=== PATIENT | female | born 1940 | race African-American/Black ===

== ENCOUNTER 2020-02-13 04:38 | Inpatient (IN) | payer OTHER ==
[~2020-02-13] VITALS: Ht 157.5 cm; Wt 101.7 kg
[2020-02-13 06:46] LABS: BASOPHILS % 0.7 % (0.0-2.0); EOSINOPHILS % 0.7 % (0.0-5.0); HEMATOCRIT. 32.6 % (36.0-48.0); HEMOGLOBIN. 10.6 g/dL (12.0-16.0); LYMPHOCYTES % 11.1 % (20.0-50.0); MEAN CORPUSCULAR HEMOGLOBIN 27.4 pg (28.0-32.0); MEAN CORPUSCULAR VOLUME 84.2 fL (81.0-99.0); MEAN PLATELET VOLUME 9.3 fl (7.4-10.4); MONOCYTES % 6.2 % (2.0-8.0); NEUTROPHILS % 81.3 % (40.0-76.0); PLATELET 208 x1000/uL (130-400); RED BLOOD CELL COUNT 3.88 mill/uL (4.2-5.4)
[2020-02-13 06:52] LABS: CHLORIDE 113 mEq/L (98-107)
[2020-02-13 06:55] LABS: PROTHROMBIN TIME 10.7 sec (9.6-11.0)
[2020-02-13] MEDS ORDERED: NITROGLYCERIN 0.4MG TABLET SL SL ONE ×2 (07:15→11:00)
[2020-02-13] MEDS ORDERED: FUROSEMIDE 40MG/4ML VIAL IVP ONE (07:15)
[2020-02-13] MEDS ORDERED: ASPIRIN 81MG TABLET PO ONE (07:15)
[2020-02-13] MEDS ORDERED: NITROGLYCERIN 50MG PREMIX 250 ML IV ONE (08:00)
[2020-02-13] MEDS ORDERED: DIPHENHYDRAMINE 50MG/ML VIAL IV PRN (11:00)
[2020-02-13] MEDS ORDERED: DOCUSATE SODIUM 100MG CAPSULE PO PRN (11:00)
[2020-02-13] MEDS ORDERED: ISOSORBIDE MONONITRATE 30MG TABLET SR 24HR PO SCH (11:00)
[2020-02-13] MEDS ORDERED: ONDANSETRON HCL 4MG/2ML INJ IV PRN (11:00)
[2020-02-13] MEDS ORDERED: ACETAMINOPHEN 325MG TABLET PO PRN ×2 (11:00)
[2020-02-13] MEDS ORDERED: ACETAMINOPHEN 650MG/20.3ML UDC GT PRN ×2 (11:00)
[2020-02-13] MEDS ORDERED: NA PHOS,M-B/NA PHOS,DI-BA ENEMA 118ML PR PRN (11:00)
[2020-02-13] MEDS ORDERED: GUAIFENESIN 200MG/10ML SUGAR FREE UDC PO PRN (11:00)
[2020-02-13 13:14] LABS: BG BASE EXCESS -2.7 mmol/L (-2.0-2.0); BG CARBOXYHEMOGLOBIN 0.3 % (0.5-1.5); BG DEOXYHEMOGLOBIN 6.1 % (0.0-5.0); BG FRACTION INSPIRED OXYGEN 28; BG HCO3 ACT 22.8 mmol/L (22.0-26.0); BG METHEMOGLOBIN 0.3 % (0.0-1.5); BG OXYGEN SATURATION 93.9 % (92.0-98.5); BG OXYHEMOGLOBIN 93.3 % (94.0-97.0); BG PCO2 42.6 mmHg (35.0-45.0); BG PH 7.346 (7.350-7.450); BG PO2 69.3 mmHg (75.0-100.0); BG SAMPLE SITE RIGHT RADIAL; BG VENT MODE NASAL CANNULA
[2020-02-13] MEDS: CLONIDINE 0.1MG TABLET PO PRN (13:56)
[2020-02-13] MEDS: FUROSEMIDE 40MG/4ML VIAL IV SCH (15:08)
[2020-02-13] MEDS ORDERED: OMEP20TA2 MT (18:00)
[2020-02-13] MEDS ORDERED: SPIR100T5 MT (18:06)
[2020-02-13] MEDS ORDERED: AMLO10TA80 PO (18:09)
[2020-02-13] MEDS ORDERED: ATOR-2 PO (18:09)
[2020-02-13] MEDS: AMLODIPINE 10MG TABLET PO SCH (21:17)
[2020-02-13 22:20] VITALS: BP 211/88
[2020-02-13] MEDS ORDERED: IPRATROPIUM/ALBUTEROL 0.5-3(2.5)MG/3ML NEB HHN PRN (22:30)
[2020-02-13] MEDS: HYDRALAZINE HCL 50MG TABLET PO SCH (22:52)
[2020-02-13] MEDS: METHYLPREDNISOLONE SOD SUCC 40 MG/ML VIAL IV SCH (23:07)
[2020-02-14] VITALS (7 sets, daily range): BP systolic 161–190; BP diastolic 69–89
[2020-02-14] MEDS: CLONIDINE 0.1MG TABLET PO PRN ×3 (01:06→13:32)
[2020-02-14] MEDS: METHYLPREDNISOLONE SOD SUCC 40 MG/ML VIAL IV SCH ×3 (05:35→21:18)
[2020-02-14] MEDS: HYDRALAZINE HCL 50MG TABLET PO SCH ×3 (05:38→21:20)
[2020-02-14 08:04] LABS: BASOPHILS % 0.3 % (0.0-2.0); EOSINOPHILS % 0.1 % (0.0-5.0); HEMATOCRIT. 30.8 % (36.0-48.0); HEMOGLOBIN. 10.2 g/dL (12.0-16.0); LYMPHOCYTES % 11.3 % (20.0-50.0); MEAN CORPUSCULAR HEMOGLOBIN 27.7 pg (28.0-32.0); MEAN CORPUSCULAR VOLUME 83.4 fL (81.0-99.0); MEAN PLATELET VOLUME 9.5 fl (7.4-10.4); MONOCYTES % 1.1 % (2.0-8.0); NEUTROPHILS % 87.2 % (40.0-76.0); PLATELET 210 x1000/uL (130-400); RED BLOOD CELL COUNT 3.69 mill/uL (4.2-5.4); RED CELL DISTRIBUTION WIDTH 14.8 % (11.6-14.6)
[2020-02-14 08:16] LABS: CHLORIDE 109 mEq/L (98-107)
[2020-02-14 08:23] LABS: LDL CHOLESTEROL 99 mg/dL (5-100)
[2020-02-14 08:24] LABS: HDL CHOLESTEROL 48 mg/dL (40-59)
[2020-02-14] MEDS: AMLODIPINE 10MG TABLET PO SCH (08:38)
[2020-02-14] MEDS ORDERED: AZITHROMYCIN 500 MG TABLET PO ONE (09:00)
[2020-02-14] MEDS: FUROSEMIDE 40MG/4ML VIAL IV SCH (10:10)
[2020-02-14] MEDS: ISOSORBIDE DINITRATE 10MG TABLET PO SCH ×2 (13:33→17:32)
[2020-02-15] VITALS (8 sets, daily range): BP systolic 121–175; BP diastolic 57–70
[2020-02-15] MEDS: CLONIDINE 0.1MG TABLET PO PRN ×3 (00:58→17:20)
[2020-02-15 02:07] LABS: CLARITY URINE CLEAR (CLEAR); COLOR URINE YELLOW (YELLOW); KETONES URINE NEGATIVE (NEGATIVE); LEUKOCYTE ESTERASE URINE NEGATIVE (NEGATIVE); NITRITE URINE NEGATIVE (NEGATIVE); OCCULT BLOOD URINE NEGATIVE (NEGATIVE); PROTEIN URINE 2+ (NEGATIVE); SPECIFIC GRAVITY URINE 1.012 (1.005-1.030); UROBILINOGEN URINE 0.2 E.U./dL (0.2-1.0)
[2020-02-15 02:16] LABS: METHADONE URINE SCREEN NEGATIVE (NEGATIVE)
[2020-02-15 02:17] LABS: *AMPHETAMINES SCREEN URINE NEGATIVE (NEGATIVE); *BENZODIAZEPINES SCREEN URINE NEGATIVE (NEGATIVE); *COCAINE SCREEN URINE NEGATIVE (NEGATIVE); CANNABINOID URINE SCREEN NEGATIVE (NEGATIVE); OPIATES URINE SCREEN NEGATIVE (NEGATIVE); PHENCYCLIDINE URINE SCREEN NEGATIVE (NEGATIVE)
[2020-02-15 02:20] LABS: *BARBITURATES SCREEN URINE NEGATIVE (NEGATIVE)
[2020-02-15] MEDS ORDERED: OMEPRAZOLE 20MG CAPSULE EXTENDED RELEASE PO SCH (06:45)
[2020-02-15] MEDS ORDERED: NON FORMULARY PATIENT HOME MED XX SCH (06:45)
[2020-02-15] MEDS ORDERED: OMEPRAZOLE 20MG CAP PO SCH (06:45)
[2020-02-15] MEDS: METHYLPREDNISOLONE SOD SUCC 40 MG/ML VIAL IV SCH ×2 (06:49→13:38)
[2020-02-15] MEDS: HYDRALAZINE HCL 50MG TABLET PO SCH (06:50)
[2020-02-15] MEDS: FUROSEMIDE 40MG/4ML VIAL IV SCH (09:00)
[2020-02-15] MEDS: ISOSORBIDE DINITRATE 10MG TABLET PO SCH ×3 (09:00→17:20)
[2020-02-15] MEDS: AMLODIPINE 10MG TABLET PO SCH (09:00)
[2020-02-15] MEDS ORDERED: AZITHROMYCIN 250 MG TABLET PO SCH (09:00)
[2020-02-15] MEDS ORDERED: DEXTROSE 50% WATER 50ML SYRINGE IV PRN (11:30)
[2020-02-15] MEDS: BLOOD SUGAR DIAGNOSTIC STRIP TEST SCH ×3 (12:11→20:53)
[2020-02-15] MEDS: INSULIN LISPRO 100 UNITS/ML SUBCUT SCH ×3 (12:12→20:53)
[2020-02-15 13:01] LABS: BASOPHILS % 0.1 % (0.0-2.0); HEMATOCRIT. 31.1 % (36.0-48.0); HEMOGLOBIN. 10.4 g/dL (12.0-16.0); MEAN CORPUSCULAR VOLUME 83.5 fL (81.0-99.0); MEAN PLATELET VOLUME 9.1 fl (7.4-10.4); MONOCYTES % 4.6 % (2.0-8.0); NEUTROPHILS % 85.3 % (40.0-76.0); PLATELET 260 x1000/uL (130-400); RED BLOOD CELL COUNT 3.73 mill/uL (4.2-5.4); RED CELL DISTRIBUTION WIDTH 15.4 % (11.6-14.6)
[2020-02-15 13:04] LABS: CHLORIDE 106 mEq/L (98-107)
[2020-02-15] MEDS: HYDRALAZINE HCL 25MG TABLET PO SCH ×2 (13:42→22:27)
[2020-02-15] MEDS: IPRATROPIUM/ALBUTEROL 0.5-3(2.5)MG/3ML NEB HHN SCH ×2 (14:27→21:15)
== END 2020-02-15 22:40 | disposition short-term general hospital (02) | DRG 304 ==
LOC: ER 05:04 → 7EST 09:44 → EDBEDREQSVC 19:01 → ENRESERV 20:54 → 5WST 02-14 23:58
PROVIDERS: ADMIT Family Medicine; ATTEND Family Medicine
PROC: 5A09357 Assistance with Respiratory Ventilation, Less than 24 Consecutive Hours, Continuous Positive Airway Pressure (ICD-10-PCS; principal; 2020-02-13)
DX: I16.1 Hypertensive emergency (principal); J96.01 Acute respiratory failure with hypoxia; I31.3 Pericardial effusion (noninflammatory); N17.9 Acute kidney failure, unspecified; Z68.41 Body mass index [BMI] 40.0-44.9, adult; J44.1 Chronic obstructive pulmonary disease with (acute) exacerbation; I13.0 Hypertensive heart and chronic kidney disease with heart failure and stage 1 through stage 4 chronic kidney disease, or unspecified chronic kidney disease; D63.8 Anemia in other chronic diseases classified elsewhere; N18.9 Chronic kidney disease, unspecified; R77.8 Other specified abnormalities of plasma proteins; D72.829 Elevated white blood cell count, unspecified; E66.01 Morbid (severe) obesity due to excess calories; E11.22 Type 2 diabetes mellitus with diabetic chronic kidney disease; F17.210 Nicotine dependence, cigarettes, uncomplicated; I25.10 Atherosclerotic heart disease of native coronary artery without angina pectoris; I49.3 Ventricular premature depolarization; I50.9 Heart failure, unspecified; Z20.828 Contact with and (suspected) exposure to other viral communicable diseases; Z79.899 Other long term (current) drug therapy
CPT/HCPCS: 36415; 36600; 71045; 71250; 76770; 80053; 80061; 80305; 81003; 82375; 82805; 82962; 83036; 83605; 83880; 84484; 85025; 87426; 87635; 93005; 93306; 93970; 94640; 94660; 99285; J1940; J2920; J3490

== ENCOUNTER 2020-03-15 08:03 | Inpatient (IN) | payer OTHER ==
[~2020-03-15] VITALS: Ht 157.5 cm; Wt 95.7 kg
[~2020-03-15 08:03] MED LIST: AMLO10TA80 PO; ATOR-2 PO; OMEP20TA2 MT; SPIR100T5 MT
[2020-03-15] MEDS ORDERED: FUROSEMIDE 40MG/4ML VIAL IVP ONE (08:45)
[2020-03-15] MEDS ORDERED: NITROGLYCERIN 0.4MG TABLET SL SL ONE (08:45)
[2020-03-15 08:55] LABS: BASOPHILS % 1.1 % (0.0-2.0); EOSINOPHILS % 4.1 % (0.0-5.0); HEMATOCRIT. 29.1 % (36.0-48.0); HEMOGLOBIN. 9.5 g/dL (12.0-16.0); LYMPHOCYTES % 22.3 % (20.0-50.0); MEAN CORPUSCULAR VOLUME 83.2 fL (81.0-99.0); MEAN PLATELET VOLUME 8.5 fl (7.4-10.4); MONOCYTES % 8.4 % (2.0-8.0); NEUTROPHILS % 64.1 % (40.0-76.0); PLATELET 447 x1000/uL (130-400); RED CELL DISTRIBUTION WIDTH 15.9 % (11.6-14.6)
[2020-03-15 09:02] LABS: CHLORIDE 107 mEq/L (98-107)
[2020-03-15] MEDS ORDERED: CEFTRIAXONE 1 G PREMIX 50 ML IV ONE (11:30)
[2020-03-15] MEDS ORDERED: ASPIRIN 81MG TABLET PO ONE (11:30)
[2020-03-15] MEDS: AZITHROMYCIN 500 MG in DEXT 5% WATER 250 ML IV SCH ×2 (12:00→12:40)
[2020-03-15 14:07] VITALS: BP 165/78
[2020-03-15 16:00] VITALS: BP 173/69
[2020-03-15] MEDS ORDERED: IPRATROPIUM/ALBUTEROL 0.5-3(2.5)MG/3ML NEB HHN SCH (16:00)
[2020-03-15] MEDS ORDERED: MAGNESIUM/ALUMINUM HYDROXIDE/SIMETHICONE 30ML UDC PO PRN (17:00)
[2020-03-15] MEDS ORDERED: ONDANSETRON HCL 4MG/2ML INJ IV PRN (17:00)
[2020-03-15] MEDS ORDERED: ACETAMINOPHEN 325MG TABLET PO PRN ×2 (17:00)
[2020-03-15] MEDS ORDERED: MAGNESIUM HYDROXIDE 400MG/5ML 30ML UDC PO PRN (17:00)
[2020-03-15] MEDS ORDERED: DEXTROSE 50% WATER 50ML SYRINGE IV PRN (17:00)
[2020-03-15] MEDS ORDERED: GUAIFENESIN 200MG/10ML SUGAR FREE UDC PO PRN (17:00)
[2020-03-15] MEDS ORDERED: IPRATROPIUM/ALBUTEROL 0.5-3(2.5)MG/3ML NEB HHN PRN (17:00)
[2020-03-15] MEDS ORDERED: HYDROCODONE/ACETAMINOPHEN 5/325MG TABLET PO PRN (17:00)
[2020-03-15] MEDS ORDERED: DIPHENHYDRAMINE 50MG/ML VIAL IV PRN (17:00)
[2020-03-15] MEDS: IPRATROPIUM/ALBUTEROL 0.5-3(2.5)MG/3ML NEB HHN SCH (17:34)
[2020-03-15] MEDS: BLOOD SUGAR DIAGNOSTIC STRIP TEST SCH ×2 (17:43→21:04)
[2020-03-15] MEDS: INSULIN LISPRO 100 UNITS/ML SUBCUT SCH ×2 (17:44→21:00)
[2020-03-15] MEDS: FUROSEMIDE 40MG/4ML VIAL IVP SCH (17:49)
[2020-03-15] MEDS: ENOXAPARIN 40MG/0.4ML SYR SUBCUT SCH (17:49)
[2020-03-15 20:28] VITALS: BP 155/68
[2020-03-15] MEDS ORDERED: ZOLPIDEM TARTRATE 5MG TABLET PO PRN (21:00)
[2020-03-15] MEDS: HYDRALAZINE HCL 50MG TABLET PO SCH (21:03)
[2020-03-15] MEDS: OMEPRAZOLE 20MG CAPSULE EXTENDED RELEASE PO SCH (21:03)
[2020-03-15] MEDS: SODIUM CHLORIDE 0.9% INJ 3ML FLUSH IVF SCH (21:04)
[2020-03-15] MEDS: INSULIN GLARGINE UD 100 UNITS/ML SYR SUBCUT SCH (21:05)
[2020-03-15] MEDS: METHYLPREDNISOLONE SOD SUCC 125 MG/2 ML VIAL IV SCH (22:11)
[2020-03-15] MEDS: LORAZEPAM 0.5MG TABLET PO PRN (23:07)
[2020-03-16] VITALS (7 sets, daily range): BP systolic 161–185; BP diastolic 54–78
[2020-03-16] MEDS: CLONIDINE 0.1MG TABLET PO PRN (00:28)
[2020-03-16] MEDS: IPRATROPIUM/ALBUTEROL 0.5-3(2.5)MG/3ML NEB HHN SCH ×4 (00:42→21:26)
[2020-03-16] MEDS: METHYLPREDNISOLONE SOD SUCC 125 MG/2 ML VIAL IV SCH ×3 (06:07→21:16)
[2020-03-16] MEDS: SODIUM CHLORIDE 0.9% INJ 3ML FLUSH IVF SCH ×3 (06:08→21:16)
[2020-03-16] MEDS: HYDRALAZINE HCL 50MG TABLET PO SCH ×3 (06:18→21:17)
[2020-03-16] MEDS: BLOOD SUGAR DIAGNOSTIC STRIP TEST SCH ×4 (06:20→20:29)
[2020-03-16] MEDS: FUROSEMIDE 40MG/4ML VIAL IVP SCH ×2 (07:08→17:19)
[2020-03-16] MEDS: INSULIN LISPRO 100 UNITS/ML SUBCUT SCH ×4 (07:50→20:46)
[2020-03-16] MEDS: OMEPRAZOLE 20MG CAPSULE EXTENDED RELEASE PO SCH ×2 (08:22→20:45)
[2020-03-16] MEDS ORDERED: AMLODIPINE 10MG TABLET PO SCH (09:00)
[2020-03-16] MEDS: ENOXAPARIN 40MG/0.4ML SYR SUBCUT SCH (17:19)
[2020-03-16] MEDS: INSULIN GLARGINE UD 100 UNITS/ML SYR SUBCUT SCH ×2 (22:00→22:10)
[2020-03-16] MEDS: LORAZEPAM 0.5MG TABLET PO PRN (22:11)
[2020-03-17] MEDS: CLONIDINE 0.1MG TABLET PO PRN (00:06)
[2020-03-17 00:46] VITALS: BP 180/80
[2020-03-17] MEDS: IPRATROPIUM/ALBUTEROL 0.5-3(2.5)MG/3ML NEB HHN SCH (01:02)
[2020-03-17 03:00] VITALS: BP 159/75
== END 2020-03-17 03:20 | disposition short-term general hospital (02) | DRG 291 ==
LOC: ER 08:13 → 6WST 11:12 → ENRESERV 12:34 → CANRESERV 12:34 → ENRESERV 12:54
PROVIDERS: ADMIT Internal Medicine; ATTEND Internal Medicine
PROC: 5A09357 Assistance with Respiratory Ventilation, Less than 24 Consecutive Hours, Continuous Positive Airway Pressure (ICD-10-PCS; principal; 2020-03-15)
DX: I13.0 Hypertensive heart and chronic kidney disease with heart failure and stage 1 through stage 4 chronic kidney disease, or unspecified chronic kidney disease (principal); I50.33 Acute on chronic diastolic (congestive) heart failure; J96.01 Acute respiratory failure with hypoxia; J44.1 Chronic obstructive pulmonary disease with (acute) exacerbation; N17.9 Acute kidney failure, unspecified; D63.8 Anemia in other chronic diseases classified elsewhere; E11.22 Type 2 diabetes mellitus with diabetic chronic kidney disease; D47.3 Essential (hemorrhagic) thrombocythemia; E66.9 Obesity, unspecified; E78.5 Hyperlipidemia, unspecified; E87.5 Hyperkalemia; R74.01 Elevation of levels of liver transaminase levels; I16.0 Hypertensive urgency; Z20.828 Contact with and (suspected) exposure to other viral communicable diseases; N18.9 Chronic kidney disease, unspecified; Z87.891 Personal history of nicotine dependence; Z99.81 Dependence on supplemental oxygen; Z79.899 Other long term (current) drug therapy; Z68.38 Body mass index [BMI] 38.0-38.9, adult
CPT/HCPCS: 36415; 71045; 80048; 80053; 82962; 83036; 83605; 83880; 84484; 85025; 87426; 93005; 93970; 94640; 94660; 97162; 99285; J0456; J0696; J1650; J1815; J1940; J2930; J7060

== ENCOUNTER 2020-08-19 15:20 | Emergency (ER) | payer OTHER ==
[~2020-08-19] VITALS: Ht 165.1 cm; Wt 82.0 kg
[2020-08-19] MEDS ORDERED: ACETAMINOPHEN 325MG TABLET PO STA (15:58)
[2020-08-19 17:05] LABS: BASOPHILS % 0.5 % (0.0-2.0); EOSINOPHILS % 1.7 % (0.0-5.0); HEMOGLOBIN. 7.6 g/dL (12.0-16.0); LYMPHOCYTES % 12.6 % (20.0-50.0); MEAN CORPUSCULAR HEMOGLOBIN 24.2 pg (28.0-32.0); MEAN PLATELET VOLUME 8.9 fl (7.4-10.4); MONOCYTES % 6.6 % (2.0-8.0); NEUTROPHILS % 78.6 % (40.0-76.0); PLATELET 249 x1000/uL (130-400); RED BLOOD CELL COUNT 3.16 mill/uL (4.2-5.4); RED CELL DISTRIBUTION WIDTH 18.2 % (11.6-14.6)
[2020-08-19 17:12] LABS: CHLORIDE 100 mEq/L (98-107)
[2020-08-19] MEDS ORDERED: ALBUTEROL (0.083%) 2.5MG/3ML NEB HHN ONE (18:00)
[2020-08-19] MEDS ORDERED: LORAZEPAM 2MG/ML CPJ IV ONE (19:30)
[2020-08-19] MEDS ORDERED: METHYLPREDNISOLONE SOD SUCC 125 MG/2 ML VIAL IV ONE (21:00)
[2020-08-19] MEDS ORDERED: CLINDAMYCIN 300 MG in DEXTROSE 5% WATER 50 ML IV ONE (21:00)
[2020-08-19] MEDS ORDERED: FUROSEMIDE 40MG/4ML VIAL IVP ONE (22:15)
[2020-08-20 01:00] VITALS: BP 170/80
== END 2020-08-20 01:24 | disposition short-term general hospital (02) ==
LOC: ER 15:20
DX: J44.1 Chronic obstructive pulmonary disease with (acute) exacerbation (principal); R06.03 Acute respiratory distress; H93.8X1 Other specified disorders of right ear; E11.22 Type 2 diabetes mellitus with diabetic chronic kidney disease; I13.0 Hypertensive heart and chronic kidney disease with heart failure and stage 1 through stage 4 chronic kidney disease, or unspecified chronic kidney disease; N18.9 Chronic kidney disease, unspecified; Z99.81 Dependence on supplemental oxygen; I50.9 Heart failure, unspecified; Z87.891 Personal history of nicotine dependence
CPT/HCPCS: 36415; 71045; 80053; 83880; 84484; 85025; 93005; 94640; 96365; 96375; 99285; J1940; J2060; J2930; J3490; J7060